=== PATIENT | female | born 1930 | race Caucasian/White ===

== ENCOUNTER 2017-04-10 12:41 | Inpatient (IN) | payer MEDICARE, OTHER ==
[2017-04-10] MEDS ORDERED: Sodium Chloride 0.9% 10 ML Syringe FLUSH PRN (13:15)
[2017-04-10] MEDS ORDERED: Magnesium Hydroxide 400 MG/5 ML Susp 30 ML Cup PO PRN (13:15)
[2017-04-10] MEDS ORDERED: Ondansetron 4 MG/2 ML SDV IV PRN (13:15)
[2017-04-10] MEDS ORDERED: Calcium Carbonate 500 MG Tab.Chew PO PRN (13:23)
[2017-04-10 13:56] LABS: CHLORIDE,CL 107 mEq/L (98-106); SODIUM,NA 144 mEq/L (136-145)
[2017-04-10] MEDS ORDERED: Metoprolol Tartrate 5 MG/5 ML SDV IVPUSH ONE (14:42)
[2017-04-10] MEDS ORDERED: Lactated Ringers 1,000 ML IV ONE (16:00)
[2017-04-10] MEDS ORDERED: Iopamidol 755 Mg/ML 100 ML Bottle IVPUSH ONE (16:06)
--- NOTE | 2017-04-10 17:47 | PCM.SN ---
- Free Text/Narrative Note: Head CT negative per radiologist report. Patient currently in atrial fibrillation. Pulse has improved since IV metoprolol dose. Will start coumadin 10 mg STAT and recheck INR tomorrow. Will bridge with Lovenox 40 mg BID.
[2017-04-10] MEDS ORDERED: Warfarin 5 MG Tab PO ONE (17:48)
[2017-04-10] MEDS: Metoprolol Tartrate 50 MG Tab PO SCH (20:00)
[2017-04-10] MEDS: Enoxaparin 30 MG/0.3 ML Syringe SUBCUT SCH (20:01)
[2017-04-10] MEDS: atorvaSTATin 20 MG Tab PO SCH (20:01)
[2017-04-10] MEDS: amLODIPine 2.5 MG Tab PO SCH (20:06)
[2017-04-11] MEDS: Pantoprazole 40 MG Tab.CR PO SCH (07:20)
[2017-04-11] MEDS: Enoxaparin 30 MG/0.3 ML Syringe SUBCUT SCH ×2 (07:51→20:08)
[2017-04-11] MEDS: amLODIPine 2.5 MG Tab PO SCH ×2 (07:52→20:08)
[2017-04-11] MEDS: Metoprolol Tartrate 50 MG Tab PO SCH ×2 (07:52→20:08)
[2017-04-11] MEDS ORDERED: Magnesium Sulfate/D5W 2 GM in Premix Bag 1 BAG IV ONE (08:23)
[2017-04-11] MEDS ORDERED: Warfarin 5 MG Tab PO ONE (08:41)
--- NOTE | 2017-04-11 10:15 | PN ---
DATE: 04/11/2017 S: This is an elderly female who came, apparently had a stroke down in [place], came in to see me and she was in atrial fibrillation. Telemetry during the night showed rapid ventricular rate with some bradycardia. O: NECK: Supple. CHEST: Clear. CARDIAC: Regular at present. EXTREMITIES: No edema. ASSESSMENT: CEREBROVASCULAR ACCIDENT, ATRIAL FIBRILLATION. PENDING ARE CAT SCANS AND THEN WE WILL START ANTICOAGULATION. LOW ON MAGNESIUM, SO REPLENISH THAT THIS MORNING. NA/OSCAR /[id number]
[2017-04-11] MEDS: atorvaSTATin 20 MG Tab PO SCH (20:08)
[2017-04-12] MEDS: Pantoprazole 40 MG Tab.CR PO SCH (06:54)
[2017-04-12] MEDS: Metoprolol Tartrate 50 MG Tab PO SCH ×2 (07:34→19:48)
[2017-04-12] MEDS: Enoxaparin 30 MG/0.3 ML Syringe SUBCUT SCH ×2 (07:34→19:47)
[2017-04-12] MEDS: amLODIPine 2.5 MG Tab PO SCH ×2 (07:35→19:48)
[2017-04-12] MEDS ORDERED: Sodium Chloride 0.9% 1,000 ML IV SCH (08:45)
--- NOTE | 2017-04-12 09:07 | PCM.PN ---
- General Info Date of Service: 04/12/17 Functional Status: Reports: Pain Controlled, Tolerating Diet, Ambulating, Urinating - Review of Systems General: Reports: No Symptoms HEENT: Reports: No Symptoms Pulmonary: Reports: No Symptoms Cardiovascular: Reports: No Symptoms Gastrointestinal: Reports: No Symptoms Genitourinary: Reports: No Symptoms Musculoskeletal: Reports: No Symptoms Skin: Reports: No Symptoms Neurological: Reports: No Symptoms Psychiatric: Reports: No Symptoms - Patient Data Vitals - Most Recent: Last Vital Signs Temp 98.1 F 04/12/17 07:32 Pulse 64 04/12/17 07:34 Resp 20 04/12/17 07:32 BP 136/57 L 04/12/17 07:35 Pulse Ox 96 04/12/17 07:32 Weight - Most Recent: 144 lb 6.4 oz I&O - Last 24 Hours: Intake & Output 04/11/17 04/12/17 04/12/17 22:59 06:59 14:59 Intake Total 400 Balance 400 Lab Results Last 24 Hours: Laboratory Results - last 24 hr 04/12/17 04/12/17 04/12/17 Range/Units 05:00 07:00 07:00 WBC 3.9 L (5.0-10.0) 10^3/uL RBC 3.14 L (4.00-5.50) 10^6/uL Hgb 10.3 L (12.0-16.0) g/dL Hct 31.1 L (37.0-47.0) % MCV 99.0 H (82.0-94.0) fL MCH 32.8 H (27.0-32.0) pg MCHC 33.1 (33.0-38.0) g/dL RDW Coeff of Wilbert 12.9 (11.0-15.0) % Plt Count 121 L (150-400) 10^3/uL Neut % (Auto) 54.2 (35-85) % Lymph % (Auto) 26.4 (10-55) % [place] % (Auto) 12.9 (0-16) % Eos % (Auto) 5.7 H (0-5) % Baso % (Auto) 0.8 (0-3) % Neut # (Auto) 2.10 (1.80-7.00) 10^3/uL Lymph # (Auto) 1.02 (1.00-4.80) 10^3/uL [place] # (Auto) 0.50 (0.00-0.80) 10^3/uL Eos # (Auto) 0.22 (0.00-0.45) 10^3/uL Baso # (Auto) 0.03 10^3/uL PT 21.9 H (9.7-12.3) SEC INR 1.99 H (0.92-1.18) Sodium 144 (136-145) mEq/L Potassium 3.6 (3.5-5.0) mEq/L Chloride 110 H (98-106) mEq/L Carbon Dioxide 30 (21-32) mmol/L BUN 23 H (7-18) mg/dL Creatinine 1.4 H (0.6-1.0) mg/dL Est Cr Clr Drug Dosing 23.24 mL/min Estimated GFR (MDRD) 36 L (>=60) mL/min Glucose 99 (75-99) mg/dL Calcium 8.6 (8.4-10.1) mg/dL Med Orders - Current: Current Medications Acetaminophen (Tylenol) 650 mg PO Q4H PRN PRN Reason: Pain (Mild 1-3)/fever Amlodipine Besylate (Norvasc) 5 mg PO BID [facility] Last Admin: 04/12/17 07:35 Dose: 5 mg Atorvastatin Calcium (Lipitor) 40 mg PO BEDTIME [facility] Last Admin: 04/11/17 20:08 Dose: 40 mg Calcium Carbonate/Glycine (Tums) 500 mg PO QID PRN PRN Reason: Dyspepsia Enoxaparin Sodium (Lovenox) 30 mg SUBCUT BID [facility] Last Admin: 04/12/17 07:34 Dose: 30 mg Magnesium Hydroxide (Milk Of Magnesia) 30 ml PO Q12H PRN PRN Reason: Constipation Magnesium Oxide (Magnesium Oxide) 250 mg PO BIDM [facility] Last Admin: 04/12/17 07:34 Dose: 250 mg Metoprolol Tartrate (Lopressor) 50 mg PO BID [facility] Last Admin: 04/12/17 07:34 Dose: 50 mg Ondansetron HCl (Zofran) 4 mg IV Q6H PRN PRN Reason: Nausea/Vomiting Pantoprazole Sodium (Protonix) 40 mg PO 0700 [facility] Last Admin: 04/12/17 06:54 Dose: 40 mg Sodium Chloride (Saline Flush) 10 ml FLUSH ASDIRECTED PRN PRN Reason: Keep Vein Open Last Admin: 04/11/17 20:09 Dose: 10 ml Temazepam (Restoril) 15 mg PO BEDTIME PRN PRN Reason: Sleep Warfarin Sodium (Coumadin) 5 mg PO DAILY@1200 [facility] Discontinued Medications Lactated Ringer's (Ringers, Lactated) 1,000 mls @ 100 mls/hr IV ONETIME ONE Stop: 04/11/17 01:59 Last Admin: 04/10/17 16:29 Dose: 100 mls/hr Magnesium Sulfate/Dextrose 2 (gm/ Premix) 200 mls @ 100 mls/hr IV ONETIME ONE Stop: 04/11/17 10:22 Last Admin: 04/11/17 09:14 Dose: 100 mls/hr Sodium Chloride (Normal Saline) 1,000 mls @ 75 mls/hr IV ASDIRECTED [facility] Iopamidol (Isovue-370 (76%)) 100 ml IVPUSH ONETIME ONE Stop: 04/10/17 16:07 Last Admin: 04/10/17 16:20 Dose: 100 ml Metoprolol Tartrate (Lopressor) 2.5 mg IVPUSH ONETIME ONE Stop: 04/10/17 14:43 Last Admin: 04/10/17 15:24 Dose: 2.5 mg Warfarin Sodium (Coumadin) 10 mg PO ONETIME ONE Stop: 04/10/17 17:49 Last Admin: 04/10/17 20:00 Dose: 10 mg Warfarin Sodium (Coumadin) 10 mg PO ONETIME ONE Stop: 04/11/17 08:42 Last Admin: 04/11/17 09:14 Dose: 10 mg - Exam General: Alert, Oriented, Cooperative, No Acute Distress Neck: Supple Lungs: Clear to Auscultation, Normal Respiratory Effort Cardiovascular: Regular Rate, Regular Rhythm, No Murmurs GI/Abdominal Exam: Soft, Non-Tender, No Organomegaly, No Distention, No Abnormal Bruit, No Mass Back Exam: Normal Inspection, Full Range of Motion Extremities: Normal Inspection, Normal Range of Motion, Non-Tender, No Pedal Edema, Normal Capillary Refill Peripheral Pulses: 2+: Radial (L), Radial (R), Posterior Tibial (L), Posterior Tibial (R) Skin: Warm, Dry, Intact Neurological: No New Focal Deficit, Normal Gait, Normal Speech, Strength Equal Bilateral, Sensation Intact, Cranial Nerves Intact Psy/Mental Status: Alert, Normal Affect, Normal Mood - Problem List Review Problem List Initiated/Reviewed/Updated: Yes - My Orders Last 24 Hours: My Active Orders 04/12/17 07:00 MAGNESIUM [CHEM] Stat 04/12/17 12:00 Warfarin [Coumadin] 5 mg PO DAILY@1200 04/13/17 05:00 BMP [BASIC METABOLIC PANEL,BMP] [CHEM] DAILY CBC WITH AUTO DIFF [HEME] DAILY INR,PT,PROTHROMBIN TIME [COAG] DAILY MAGNESIUM [CHEM] Routine 04/14/17 05:00 BMP [BASIC METABOLIC PANEL,BMP] [CHEM] DAILY CBC WITH AUTO DIFF [HEME] DAILY INR,PT,PROTHROMBIN TIME [COAG] DAILY - Plan Plan:: This patient is an 86 year old female that was admitted for a-fib, stroke, generalized weakness. Patient today is alert and oriented. Patient denies any pain, otto, dizziness, n, v, d, f, cp, soa, abd pain, urinary/bowel changes. rash. Will continue to admit until therapeutic INR. Patient is currently NSR rate of 54. Patient plan is to see PCP on Friday. Patient is alert and oriented , no unilateral weaknesses. Stable.
[2017-04-12] MEDS ORDERED: Warfarin 5 MG Tab PO SCH (12:00)
[2017-04-12] MEDS: atorvaSTATin 20 MG Tab PO SCH (19:48)
[2017-04-12] MEDS: Acetaminophen 325 MG Tab PO PRN (19:48)
[2017-04-12] MEDS: Temazepam 15 MG Cap PO PRN (19:48)
[2017-04-13] MEDS: Pantoprazole 40 MG Tab.CR PO SCH (06:28)
[2017-04-13] MEDS: Enoxaparin 30 MG/0.3 ML Syringe SUBCUT SCH (07:38)
[2017-04-13] MEDS: Metoprolol Tartrate 50 MG Tab PO SCH ×2 (07:38→20:10)
[2017-04-13] MEDS: amLODIPine 2.5 MG Tab PO SCH ×2 (07:39→20:15)
[2017-04-13] MEDS ORDERED: Sodium Chloride 0.9% 500 ML IV SCH (11:45)
[2017-04-13] MEDS ORDERED: Warfarin 2.5 MG Tab PO SCH (11:45)
--- NOTE | 2017-04-13 12:34 | PCM.PN ---
- General Info Date of Service: 04/13/17 Functional Status: Reports: Pain Controlled, Tolerating Diet, Ambulating, Urinating - Review of Systems General: Reports: No Symptoms HEENT: Reports: No Symptoms Pulmonary: Reports: No Symptoms Cardiovascular: Reports: No Symptoms Gastrointestinal: Reports: No Symptoms Genitourinary: Reports: No Symptoms Musculoskeletal: Reports: No Symptoms Skin: Reports: No Symptoms Neurological: Reports: No Symptoms Psychiatric: Reports: No Symptoms - Patient Data Vitals - Most Recent: Last Vital Signs Temp 97.2 F 04/13/17 07:36 Pulse 63 04/13/17 07:38 Resp 20 04/13/17 07:36 BP 130/55 L 04/13/17 07:39 Pulse Ox 96 04/13/17 07:36 Weight - Most Recent: 144 lb 6.4 oz I&O - Last 24 Hours: Intake & Output 04/12/17 04/13/17 04/13/17 22:59 06:59 14:59 Intake Total 600 Balance 600 Lab Results Last 24 Hours: Laboratory Results - last 24 hr 04/13/17 04/13/17 04/13/17 Range/Units 07:30 07:30 07:30 WBC 3.5 L (5.0-10.0) 10^3/uL RBC 3.31 L (4.00-5.50) 10^6/uL Hgb 10.7 L (12.0-16.0) g/dL Hct 32.7 L (37.0-47.0) % MCV 98.8 H (82.0-94.0) fL MCH 32.3 H (27.0-32.0) pg MCHC 32.7 L (33.0-38.0) g/dL RDW Coeff of Wilbert 12.9 (11.0-15.0) % Plt Count 119 L (150-400) 10^3/uL Neut % (Auto) 47.7 (35-85) % Lymph % (Auto) 29.7 (10-55) % [place] % (Auto) 14.4 (0-16) % Eos % (Auto) 6.5 H (0-5) % Baso % (Auto) 1.7 (0-3) % Neut # (Auto) 1.69 L (1.80-7.00) 10^3/uL Lymph # (Auto) 1.05 (1.00-4.80) 10^3/uL [place] # (Auto) 0.51 (0.00-0.80) 10^3/uL Eos # (Auto) 0.23 (0.00-0.45) 10^3/uL Baso # (Auto) 0.06 10^3/uL PT 40.1 H (9.7-12.3) SEC INR 3.57 H (0.92-1.18) Sodium 147 H (136-145) mEq/L Potassium 4.2 (3.5-5.0) mEq/L Chloride 111 H (98-106) mEq/L Carbon Dioxide 30 (21-32) mmol/L BUN 21 H (7-18) mg/dL Creatinine 1.5 H (0.6-1.0) mg/dL Est Cr Clr Drug Dosing 21.69 mL/min Estimated GFR (MDRD) 33 L (>=60) mL/min Glucose 102 H (75-99) mg/dL Calcium 8.7 (8.4-10.1) mg/dL Magnesium 1.8 (1.8-2.4) mg/dL Med Orders - Current: Current Medications Acetaminophen (Tylenol) 650 mg PO Q4H PRN PRN Reason: Pain (Mild 1-3)/fever Last Admin: 04/12/17 19:48 Dose: 650 mg Amlodipine Besylate (Norvasc) 5 mg PO BID [facility] Last Admin: 04/13/17 07:39 Dose: 5 mg Atorvastatin Calcium (Lipitor) 40 mg PO BEDTIME [facility] Last Admin: 04/12/17 19:48 Dose: 40 mg Calcium Carbonate/Glycine (Tums) 500 mg PO QID PRN PRN Reason: Dyspepsia Enoxaparin Sodium (Lovenox) 30 mg SUBCUT BID [facility] Last Admin: 04/13/17 07:38 Dose: 30 mg Sodium Chloride (Normal Saline) 500 mls @ 125 mls/hr IV .BOLUS [facility] Last Admin: 04/13/17 12:13 Dose: 125 mls/hr Magnesium Hydroxide (Milk Of Magnesia) 30 ml PO Q12H PRN PRN Reason: Constipation Magnesium Oxide (Magnesium Oxide) 250 mg PO BIDM [facility] Last Admin: 04/13/17 07:38 Dose: 250 mg Metoprolol Tartrate (Lopressor) 50 mg PO BID [facility] Last Admin: 04/13/17 07:38 Dose: 50 mg Ondansetron HCl (Zofran) 4 mg IV Q6H PRN PRN Reason: Nausea/Vomiting Pantoprazole Sodium (Protonix) 40 mg PO 0700 [facility] Last Admin: 04/13/17 06:28 Dose: 40 mg Sodium Chloride (Saline Flush) 10 ml FLUSH ASDIRECTED PRN PRN Reason: Keep Vein Open Last Admin: 04/11/17 20:09 Dose: 10 ml Temazepam (Restoril) 15 mg PO BEDTIME PRN PRN Reason: Sleep Last Admin: 04/12/17 19:48 Dose: 15 mg Warfarin Sodium (Coumadin) 2.5 mg PO ONETIME [facility] Last Admin: 04/13/17 12:11 Dose: 2.5 mg Discontinued Medications Lactated Ringer's (Ringers, Lactated) 1,000 mls @ 100 mls/hr IV ONETIME ONE Stop: 04/11/17 01:59 Last Admin: 04/10/17 16:29 Dose: 100 mls/hr Magnesium Sulfate/Dextrose 2 (gm/ Premix) 200 mls @ 100 mls/hr IV ONETIME ONE Stop: 04/11/17 10:22 Last Admin: 04/11/17 09:14 Dose: 100 mls/hr Sodium Chloride (Normal Saline) 1,000 mls @ 75 mls/hr IV ASDIRECTED [facility] Iopamidol (Isovue-370 (76%)) 100 ml IVPUSH ONETIME ONE Stop: 04/10/17 16:07 Last Admin: 04/10/17 16:20 Dose: 100 ml Metoprolol Tartrate (Lopressor) 2.5 mg IVPUSH ONETIME ONE Stop: 04/10/17 14:43 Last Admin: 04/10/17 15:24 Dose: 2.5 mg Warfarin Sodium (Coumadin) 10 mg PO ONETIME ONE Stop: 04/10/17 17:49 Last Admin: 04/10/17 20:00 Dose: 10 mg Warfarin Sodium (Coumadin) 10 mg PO ONETIME ONE Stop: 04/11/17 08:42 Last Admin: 04/11/17 09:14 Dose: 10 mg Warfarin Sodium (Coumadin) 5 mg PO DAILY@1200 [facility] Last Admin: 04/12/17 11:59 Dose: 5 mg - Exam General: Alert, Oriented, Cooperative, No Acute Distress Neck: Supple, Trachea Midline, No JVD Lungs: Clear to Auscultation, Normal Respiratory Effort Cardiovascular: Regular Rate, Regular Rhythm, No Murmurs GI/Abdominal Exam: Soft, Non-Tender, No Organomegaly, No Distention Back Exam: Normal Inspection, Full Range of Motion Extremities: Normal Inspection, Normal Range of Motion, Non-Tender, No Pedal Edema, Normal Capillary Refill. No: Pedal Edema Peripheral Pulses: 2+: Radial (L), Radial (R), Posterior Tibial (L), Posterior Tibial (R), Dorsalis Pedis (L), Dorsalis Pedis (R) Skin: Warm, Dry, Intact Neurological: No New Focal Deficit, Normal Gait, Normal Speech Psy/Mental Status: Alert, Normal Affect, Normal Mood - Problem List Review Problem List Initiated/Reviewed/Updated: Yes - My Orders Last 24 Hours: My Active Orders 04/13/17 11:45 Sodium Chloride 0.9% [Normal Saline] 500 ml IV .BOLUS Warfarin [Coumadin] 2.5 mg PO ONETIME 04/14/17 05:00 BMP [BASIC METABOLIC PANEL,BMP] [CHEM] DAILY CBC WITH AUTO DIFF [HEME] DAILY INR,PT,PROTHROMBIN TIME [COAG] DAILY - Plan Plan:: 04/12/17 This patient is an 86 year old female that was admitted for a-fib, stroke, generalized weakness. Patient today is alert and oriented. Patient denies any pain, otto, dizziness, n, v, d, f, cp, soa, abd pain, urinary/bowel changes. rash. Will continue to admit until therapeutic INR. Patient is currently NSR rate of 54. Patient plan is to see PCP on Friday. Patient is alert and oriented , no unilateral weaknesses. Stable. 04/13/17 Patient today has no complaints. Patient is alert and oriented. Patient INR yesterday was 1.99, today is 3.57. Today I have held her coumadin 10mg and will give her 2.5mg coumadin today. Will recheck this tomorrow and allow PCP to see her to make further coumadin dosing determination. Her CR yesterday was 1.4, today 1.5. Her BUN 23 yesterday, today is 21. I have given her a 500ml NS. Patient reports that she drinks a lot of coffee and not much water. Patient denies any complaints. She denies otto, dizziness, n, v, d, f, cp, soa, abd pain, urinary/bowel changes. She is able to ambulate without difficulty. She is eating lunch now. Stable.
[2017-04-13] MEDS: Acetaminophen 325 MG Tab PO PRN (20:10)
[2017-04-13] MEDS: Temazepam 15 MG Cap PO PRN (20:12)
[2017-04-13] MEDS: atorvaSTATin 20 MG Tab PO SCH (20:12)
[2017-04-14] MEDS: Pantoprazole 40 MG Tab.CR PO SCH (06:53)
[2017-04-14] MEDS: Metoprolol Tartrate 50 MG Tab PO SCH ×2 (08:04→19:51)
[2017-04-14] MEDS: amLODIPine 2.5 MG Tab PO SCH ×2 (08:04→19:51)
--- NOTE | 2017-04-14 08:46 | PN ---
DATE: 04/14/2017 S: Marika Baires came in with CVA secondary to atrial fibrillation. CTA of chest and head looked okay. CT scan had looked pretty good. Echo pending. O: On examination, NECK: Supple. CHEST: Clear. CARDIAC: Regular. ASSESSMENT: ATRIAL FIBRILLATION AND CEREBROVASCULAR ACCIDENT. P: Continue anticoagulation. shelter placement. We will do an anemia workup on her. NA/OSCAR /[id number]
[2017-04-14] MEDS: Acetaminophen 325 MG Tab PO PRN (19:51)
[2017-04-14] MEDS: atorvaSTATin 20 MG Tab PO SCH (19:51)
[2017-04-14] MEDS: Temazepam 15 MG Cap PO PRN (19:52)
[2017-04-15] MEDS: Pantoprazole 40 MG Tab.CR PO SCH (07:00)
[2017-04-15] MEDS: amLODIPine 2.5 MG Tab PO SCH ×2 (08:00→20:08)
[2017-04-15] MEDS: Metoprolol Tartrate 50 MG Tab PO SCH ×2 (15:06→20:11)
[2017-04-15] MEDS: atorvaSTATin 20 MG Tab PO SCH (20:08)
[2017-04-15] MEDS: Temazepam 15 MG Cap PO PRN (21:34)
[2017-04-16] MEDS: Pantoprazole 40 MG Tab.CR PO SCH (06:42)
[2017-04-16] MEDS: Metoprolol Tartrate 50 MG Tab PO SCH ×2 (07:59→20:19)
[2017-04-16] MEDS: amLODIPine 2.5 MG Tab PO SCH ×2 (08:00→20:19)
--- NOTE | 2017-04-16 08:20 | PN ---
DATE: 04/15/2017 S: Marika Baires is in with atrial fibrillation, CVA, really good today, says she feels better. Still walking with PT. O: NECK: Supple. CHEST: Clear. CARDIAC: Regular. No edema. 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 P: Continue physical therapy and then disposition question. NA/OSCAR /[id number]
[2017-04-16] MEDS ORDERED: Warfarin 2 MG Tab PO ONE (08:43)
--- NOTE | 2017-04-16 11:59 | PN ---
DATE: 04/16/2017 S: Marika Baires is in CVA, atrial fibrillation. O: NECK: Supple. CHEST: Clear. CARDIAC: Sounds are good. ASSESSMENT: ATRIAL FIBRILLATION WITH PROBABLE THROMBOEMBOLIC PHENOMENON FOR CEREBROVASCULAR DISEASES. P: Continue anticoagulation and find out what we are going to do with her. NA/OSCAR /[id number]
[2017-04-16] MEDS: atorvaSTATin 20 MG Tab PO SCH (20:19)
[2017-04-16] MEDS: Temazepam 15 MG Cap PO PRN (22:27)
[2017-04-17] MEDS: Pantoprazole 40 MG Tab.CR PO SCH (06:56)
[2017-04-17] MEDS: Metoprolol Tartrate 50 MG Tab PO SCH (07:57)
[2017-04-17] MEDS: amLODIPine 2.5 MG Tab PO SCH (07:57)
--- NOTE | 2017-04-17 08:04 | DISCH ---
HOSPITAL COURSE: Marika Baires came in with a history of CVA with atrial fibrillation. She was admitted to the hospital and started on anticoagulation and responded nicely. At the time of discharge, she had converted. She had no further deficit from the CVA. I did do a CTA of her head and neck, which looked good. CAT scan of the head showed minimal residual from the stroke. Echocardiogram showed no significant problems. Lab here in the hospital; hemoglobin was down a little bit from 10.3, but it went back to 11. INR became elevated, we held, and at the time of discharge, it was adequate. Panel 8 looks good other than the creatinine mildly elevated, which is fci. Urinalysis looks good. DISPOSITION: The patient now discharged home, be admitted to basic care at [facility] next Friday. I will see her back in the clinic next for an INR. DISCHARGE MEDICATIONS: Include home meds plus Coumadin 2 mg daily. DISCHARGE DIAGNOSIS: 1. ATRIAL FIBRILLATION. 2. CEREBROVASCULAR ACCIDENT. 3. HYPERTENSION. 4. HYPERLIPIDEMIA. NA/OSCAR /[id number]
== END 2017-04-17 14:15 | disposition home or self-care (01) | DRG 308 ==
LOC: CC.MS 12:59
PROVIDERS: ADMIT General Practice; ATTEND General Practice
DX: I48.0 Paroxysmal atrial fibrillation (principal); I63.8 Other cerebral infarction; Z79.01 Long term (current) use of anticoagulants; R53.1 Weakness; E83.42 Hypomagnesemia; I10 Essential (primary) hypertension; E78.5 Hyperlipidemia, unspecified; R42 Dizziness and giddiness; Z79.899 Other long term (current) drug therapy
CPT/HCPCS: 36415; 70450; 70496; 70498; 71020; 80048; 80053; 81001; 82270; 82607; 82728; 82746; 83540; 83550; 83735; 84443; 85025; 85379; 85610; 85651; 86140; 93005; 93306; 97110-GP; 97161-GP; A9270-GY; J1650; J3475; J3490; J7040; J7050; J7120; Q9967

== ENCOUNTER 2018-04-06 21:35 | Emergency (ER) | payer MEDICARE, MEDICAID ==
[2018-04-06] MEDS ORDERED: Ondansetron 4 MG Tab.DIS PO ONE (21:43)
--- NOTE | 2018-04-06 22:07 | EDM.PDOC ---
ED HPI GENERAL MEDICAL PROBLEM - General Chief Complaint: Gastrointestinal Problem Stated Complaint: n/v/d Time Seen by Provider: 04/06/18 22:00 Source of Information: Reports: Patient, Fdc Records History Limitations: Reports: No Limitations - History of Present Illness INITIAL COMMENTS - FREE TEXT/NARRATIVE: at 0200 she started with vomiting and diarrhea and has had it on and off since. Last time that she vomited or diarrhea was about supper time. She did keep her evening meds down. She denies having any fever throughout the day. Does have some stomach cramping but less than previously. She does reside in basic care at [facility]. 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: Other (see below) (pepto and immodium) - Related Data Allergies Allergy/AdvReac Type Severity Reaction Status Date / Time No Known Allergies Allergy Verified 04/06/18 21:41 Home Meds: Home Meds Metoprolol Tartrate [Lopressor] 50 mg PO BID 04/10/17 [History] Pantoprazole Sodium 40 mg PO QAM 04/10/17 [History] amLODIPine [Norvasc] 2.5 mg PO BID 04/10/17 [History] atorvaSTATin [Lipitor] 40 mg PO BEDTIME 04/10/17 [History] Magnesium Oxide 250 mg PO BIDM #30 tablet 04/17/17 [Rx] Acetaminophen 650 mg PO Q4H 04/06/18 [History] Loratadine 10 mg PO DAILY PRN 04/06/18 [History] Triamterene/Hydrochlorothiazid [Dyazide 37.5-25] 1 cap PO DAILY 04/06/18 [ History] Warfarin [Coumadin] 2.5 mg PO DAILY 04/06/18 [History] Past Medical History Cardiovascular History: Reports: Afib, High Cholesterol Genitourinary History: Reports: Urinary Incontinence [employer] History: Reports: Neurological History: Reports: CVA Other Neuro History: 02/2017 Hematologic History: Reports: B12 Deficiency - Past Surgical History GI Surgical History: Reports: Appendectomy, Cholecystectomy Female Surgical History: Reports: Hysterectomy Social & Family History - Family History Family Medical History: Noncontributory - Caffeine Use Caffeine Use: Reports: None Caffeine Use Comment: Decaf coffee - Living Situation & Occupation Living situation: Reports: Extended Care Facility Occupation: Retired ED ROS GENERAL - Review of Systems Review Of Systems: See Below Constitutional: Reports: Weakness, Decreased Appetite. Denies: Fever, Chills HEENT: Reports: No Symptoms Respiratory: Reports: No Symptoms Cardiovascular: Reports: No Symptoms GI/Abdominal: Reports: Diarrhea, Vomiting. Denies: Black Stool, Bloody Stool : Denies: Dysuria, Frequency Skin: Denies: Rash Neurological: Reports: Dizziness (did have earlier but denies any currently.) ED EXAM, GI/ABD - Physical Exam Exam: See Below Exam Limited By: No Limitations General Appearance: Alert, WD/WN, No Apparent Distress Ears: Normal Canal, Normal TMs Nose: Normal Inspection, Normal Mucosa Throat/Mouth: Normal Inspection, Normal Oropharynx, Normal Voice, No Airway Compromise Head: Atraumatic, Normocephalic Neck: Normal Inspection, Supple, Non-Tender, Full Range of Motion Respiratory/Chest: No Respiratory Distress, Lungs Clear, Normal Breath Sounds Cardiovascular: Tachycardia, Irregularly Irregular GI/Abdominal Exam: Normal Bowel Sounds, Soft, Non-Tender, No Distention, No Mass. No: Guarding, Rigid, Rebound Back Exam: Normal Inspection Extremities: No Pedal Edema, Normal Capillary Refill Neurological: Alert, Oriented, Normal Cognition Skin Exam: Warm, Dry, Intact Course - Vital Signs Last Recorded V/S: Last Vital Signs Temp 99.7 F 04/06/18 21:49 Pulse 126 H 04/06/18 22:23 Resp 18 04/06/18 21:49 BP 108/67 04/06/18 21:49 Pulse Ox 99 04/06/18 21:49 - Orders/Labs/Meds Labs: Laboratory Tests 04/06/18 04/06/18 04/06/18 Range/Units 21:50 21:50 21:50 WBC 4.8 L (5.0-10.0) 10^3/uL RBC 3.99 L (4.00-5.50) 10^6/uL Hgb 12.0 (12.0-16.0) g/dL Hct 37.1 (37.0-47.0) % MCV 93.0 (82.0-94.0) fL MCH 30.1 (27.0-32.0) pg MCHC 32.3 L (33.0-38.0) g/dL RDW Coeff of Wilbert 13.1 (11.0-15.0) % Plt Count 127 L (150-400) 10^3/uL Neut % (Auto) 88.5 H (35-85) % Lymph % (Auto) 4.2 L (10-55) % [place] % (Auto) 7.1 (0-16) % Eos % (Auto) 0 (0-5) % Baso % (Auto) 0.2 (0-3) % Neut # (Auto) 4.24 (1.80-7.00) 10^3/uL Lymph # (Auto) 0.20 L (1.00-4.80) 10^3/uL [place] # (Auto) 0.34 (0.00-0.80) 10^3/uL Eos # (Auto) 0.00 (0.00-0.45) 10^3/uL Baso # (Auto) 0.01 10^3/uL PT 24.5 H (9.7-12.3) SEC INR 2.52 H (0.92-1.18) Sodium 143 (136-145) mEq/L Potassium 3.2 L (3.5-5.0) mEq/L Chloride 104 (98-106) mEq/L Carbon Dioxide 27 (21-32) mmol/L BUN 31 H (7-18) mg/dL Creatinine 1.7 H (0.6-1.0) mg/dL Est Cr Clr Drug Dosing TNP Estimated GFR (MDRD) 28 L (>=60) mL/min Glucose 128 H D (75-99) mg/dL Calcium 8.5 (8.4-10.1) mg/dL Total Bilirubin 1.3 H (0.0-1.0) mg/dL AST 26 (15-37) U/L ALT 29 (12-78) U/L Alkaline Phosphatase 33 L (46-116) U/L C-Reactive Protein 3.6 H (0.2-0.8) mg/dL Total Protein 6.8 (6.4-8.2) g/dL Albumin 3.4 (3.4-5.0) g/dL Urine Color (YELLOW) Urine Appearance (CLEAR) Urine pH (4.5-8.0) Ur Specific [place] (1.003-1.020) Urine Protein (NEGATIVE) mg/dL Urine Glucose (UA) (NEGATIVE) mg/dL Urine Ketones (NEGATIVE) mg/dL Urine Occult Blood (NEGATIVE) Urine Nitrite (NEGATIVE) Urine Bilirubin (NEGATIVE) Urine Urobilinogen (0.2-1.0) EU/dL Ur Leukocyte Esterase (NEGATIVE) Urine RBC (0-5) /HPF Urine WBC (0-5) /HPF Ur Epithelial Cells (NOT SEEN) /HPF Urine Mucus (NOT SEEN) /HPF 04/06/18 Range/Units 22:15 WBC (5.0-10.0) 10^3/uL RBC (4.00-5.50) 10^6/uL Hgb (12.0-16.0) g/dL Hct (37.0-47.0) % MCV (82.0-94.0) fL MCH (27.0-32.0) pg MCHC (33.0-38.0) g/dL RDW Coeff of Wilbert (11.0-15.0) % Plt Count (150-400) 10^3/uL Neut % (Auto) (35-85) % Lymph % (Auto) (10-55) % [place] % (Auto) (0-16) % Eos % (Auto) (0-5) % Baso % (Auto) (0-3) % Neut # (Auto) (1.80-7.00) 10^3/uL Lymph # (Auto) (1.00-4.80) 10^3/uL [place] # (Auto) (0.00-0.80) 10^3/uL Eos # (Auto) (0.00-0.45) 10^3/uL Baso # (Auto) 10^3/uL PT (9.7-12.3) SEC INR (0.92-1.18) Sodium (136-145) mEq/L Potassium (3.5-5.0) mEq/L Chloride (98-106) mEq/L Carbon Dioxide (21-32) mmol/L BUN (7-18) mg/dL Creatinine (0.6-1.0) mg/dL Est Cr Clr Drug Dosing Estimated GFR (MDRD) (>=60) mL/min Glucose (75-99) mg/dL Calcium (8.4-10.1) mg/dL Total Bilirubin (0.0-1.0) mg/dL AST (15-37) U/L ALT (12-78) U/L Alkaline Phosphatase (46-116) U/L C-Reactive Protein (0.2-0.8) mg/dL Total Protein (6.4-8.2) g/dL Albumin (3.4-5.0) g/dL Urine Color Yellow (YELLOW) Urine Appearance Clear (CLEAR) Urine pH 6.5 (4.5-8.0) Ur Specific [place] 1.020 (1.003-1.020) Urine Protein 30 H (NEGATIVE) mg/dL Urine Glucose (UA) Negative (NEGATIVE) mg/dL Urine Ketones Trace H (NEGATIVE) mg/dL Urine Occult Blood Moderate H (NEGATIVE) Urine Nitrite Negative (NEGATIVE) Urine Bilirubin Negative (NEGATIVE) Urine Urobilinogen 0.2 (0.2-1.0) EU/dL Ur Leukocyte Esterase Negative (NEGATIVE) Urine RBC 10-20 H (0-5) /HPF Urine WBC 0-5 (0-5) /HPF Ur Epithelial Cells Few H (NOT SEEN) /HPF Urine Mucus Few H (NOT SEEN) /HPF Meds: Medications Discontinued Medications Generic Name Dose Route Start Last Admin Trade Name Freq PRN Reason Stop Dose Admin Ondansetron HCl 4 mg 04/06/18 21:43 04/06/18 21:51 Zofran Odt PO 04/06/18 21:44 4 mg ONETIME ONE Administration Departure - Departure Time of Disposition: 22:33 Disposition: [facility] Condition: Good Clinical Impression: Gastroenteritis - Discharge Information *PRESCRIPTION DRUG MONITORING PROGRAM REVIEWED*: Not Applicable *COPY OF PRESCRIPTION DRUG MONITORING REPORT IN PATIENT [place]: Not Applicable Instructions: Viral Gastroenteritis, Adult Forms: ED Department Discharge Additional Instructions: sips of fluid as tolerated Zofran ODT 4 mg as tolerated for the nausea. Avoid milk and milk products until 24 hours after diarrhea done Restart solid foods as tolerated. Recheck if not improving. - Problem List & Annotations (1) Gastroenteritis SNOMED Code(s): 62396690 Code(s): K52.9 - NONINFECTIVE GASTROENTERITIS AND COLITIS, UNSPECIFIED Status: Acute Priority: High Current Visit: Yes (2) A-fib SNOMED Code(s): 58621070 Code(s): I48.91 - UNSPECIFIED ATRIAL FIBRILLATION Status: Chronic Priority: Low Current Visit: No Qualifiers: Atrial fibrillation type: chronic Qualified Code(s): I48.2 - Chronic atrial fibrillation - Problem List Review Problem List Initiated/Reviewed/Updated: Yes
[2018-04-06 22:09] LABS: CHLORIDE,CL 104 mEq/L (98-106); SODIUM,NA 143 mEq/L (136-145)
== END 2018-04-06 22:45 ==
LOC: CC.ED 21:35
DX: K52.9 Noninfective gastroenteritis and colitis, unspecified (principal); I48.2 Chronic atrial fibrillation; E78.00 Pure hypercholesterolemia, unspecified; Z79.899 Other long term (current) drug therapy; Z79.01 Long term (current) use of anticoagulants
CPT/HCPCS: 36415; 80053; 81001; 85025; 85610; 86140; 99283; A9270

== ENCOUNTER 2019-09-27 11:22 | Inpatient (IN) | payer MEDICARE, MEDICAID ==
[2019-09-27] MEDS ORDERED: Acetaminophen 325 MG Tab PO PRN (11:57)
[2019-09-27] MEDS ORDERED: Sodium Chloride 0.9% 10 ML Syringe FLUSH PRN (11:57)
[2019-09-27] MEDS ORDERED: fentaNYL 100 MCG/2 ML SDV IVPUSH PRN (11:57)
[2019-09-27] MEDS ORDERED: Piperacillin/Tazobactam 3.375 GM in Sodium Chloride 0.9% 50 ML IV SCH (12:00)
[2019-09-27] MEDS ORDERED: Loratadine 10 MG Tab PO PRN (13:26)
[2019-09-27] MEDS: Acetaminophen 325 MG Tab PO SCH ×4 (14:37→23:41)
[2019-09-27] MEDS ORDERED: Piperacillin/Tazobactam 2.25 GM in Sodium Chloride 0.9% 50 ML IV SCH ×2 (15:00→18:00)
[2019-09-27] MEDS ORDERED: Sodium Chloride 0.9% 250 ML IV SCH (15:30)
[2019-09-27] MEDS: Sodium Chloride 0.9% 1,000 ML IV SCH (17:26)
[2019-09-27] MEDS: amLODIPine 2.5 MG Tab PO SCH (19:35)
[2019-09-27] MEDS: Metoprolol Tartrate 50 MG Tab PO SCH (19:36)
[2019-09-27] MEDS ORDERED: atorvaSTATin 20 MG Tab PO SCH (20:00)
[2019-09-27] MEDS: Piperacillin/Tazobactam 2.25 GM in Sodium Chloride 0.9% 50 ML IV SCH (23:31)
[2019-09-28] MEDS: Sodium Chloride 0.9% 1,000 ML IV SCH (02:31)
[2019-09-28] MEDS: Acetaminophen 325 MG Tab PO SCH ×3 (04:26→11:03)
[2019-09-28] MEDS ORDERED: Pantoprazole 40 MG Tab.CR PO SCH (07:00)
[2019-09-28] MEDS: Piperacillin/Tazobactam 2.25 GM in Sodium Chloride 0.9% 50 ML IV SCH (07:26)
[2019-09-28] MEDS: Metoprolol Tartrate 50 MG Tab PO SCH (07:53)
[2019-09-28] MEDS: amLODIPine 2.5 MG Tab PO SCH (07:53)
[2019-09-28] MEDS ORDERED: Folic Acid 1 MG Tab PO SCH (08:00)
[2019-09-28] MEDS ORDERED: Cyanocobalamin (Vitamin B12) 1,000 MCG Tab PO SCH (08:00)
[2019-09-28] MEDS ORDERED: Hydrochlorothiazide/Triamterene 25-37.5 MG Cap PO SCH (08:00)
[2019-09-28] MEDS ORDERED: NS + KCl 20mEq/L 1,000 ML IV SCH (09:45)
--- NOTE | 2019-09-28 13:19 | PN ---
DATE: 09/28/2019 S: Mrs. Baires was admitted by Vandana for pelvic cellulitis. It sounds like she has in the recent week had a boil somewhere in the groin or perineal area that was popped. She suddenly started developing increased pain and redness throughout the perineum and into the mons pubis area and she presented yesterday with worsening pain. She has a white count of over 20,000 and a CRP of almost 40. She was hypokalemic on admit, and her creatinine was 2.2. She did have a supratherapeutic INR as well. She has not spiked any significant temps, but she did increase her atrial fibrillation rate, she has been running in the 130s. Her blood pressures are fine. She is saturating well. Her lactic acid done this morning was 1.1. O: On physical exam, the patient is pleasant and cooperative. She does not appear in distress unless you examine in her perineal area. She has redness extending all the way from the perineum up into the mons labia and mons pubis bilaterally. She has a thick indurated and red cellulitis. I do not see any obvious boil or masses. ASSESSMENT: 1. PELVIC CELLULITIS. 2. SUPRATHERAPEUTIC INR. 3. HYPOKALEMIA. 4. CHRONIC RENAL INSUFFICIENCY. P: We will add potassium chloride to her bag and correct her potassium. Her magnesium level was normal. INR is 9.42 and we will discontinue to hold her Coumadin. She does not show any signs of active bleeding. Continue to follow her labs closely. Blood pressures are fine, and she remains on IV fluids, little concerned about her tachycardia from her atrial fibrillation. We will continue to monitor that this morning and we may need to give her a low-dose diltiazem. I am going to try to get a hold of Radiology and see if we can get a pelvic CT. If this would show an abscess here, she would need surgical consultation. VANDANA/OSCAR /[id number]
--- NOTE | 2019-09-28 13:35 | DISCH ---
ADMISSION DIAGNOSES: 1. Cellulitis. 2. Chronic atrial fibrillation. 3. Supratherapeutic INR. DISCHARGE DIAGNOSIS: 1. CARO GANGRENE. 2. ATRIAL FIBRILLATION. 3. HYPERTENSION. 4. HYPERLIPIDEMIA. HISTORY: The patient is an 89-year-old female who resides at an assisted living facility attached to [facility] in [place], [place]. Within the last week, she apparently had a boil or a cyst-like spot in her left groin, which was expressed without any trouble. Over the next 5 to 6 days, she started having increased redness in the groin and up into the labial area and now up into the suprapubic region. She was evaluated by Gemma Reed on the date of admit, felt to have cellulitis since with an elevated white count and CRP of 37. She was admitted for IV antibiotics. At that time, her lactic acid level was normal. She was hypokalemic at 3.3 and had an INR over 10. She was given vitamin K, started on vancomycin and Zosyn. HOSPITAL COURSE: The patient clinically has done fine other than pain during her stay. She has not been hypotensive. She is little tachycardic with her AFib running in the low teens. She does have potassium replaced into her IV. When I evaluated her, she had marked induration and discomfort all the way through the mons pubis down into both labia and into the perineal area which was concerning for possible abscess or Caro gangrene. I did talk to Radiology about a CT scan without contrast to see if we could see evidence of this. This was accomplished and they feel that this is the case. I was able to talk to Dr. Doyle on-call hospitalist at [facility], who agrees to accept the patient on transfer for ongoing IV antibiotic care and potential surgical intervention. Due to her elevated INR, we will give her another 5 of vitamin K prior to her leaving. Because she is going [facility], her IV potassium will be discontinued and she will be just kept on normal saline. She will go ground to direct admit at [facility] in [place]. COMPLICATIONS: During her stay were none. CONSULTATIONS: None. PROCEDURES: CT pelvis without contrast. DISPOSITION: [facility] ground transfer to [facility], direct admit, Dr. Doyle. VANDANA/OSCAR /[id number]
[2019-09-29] MEDS ORDERED: amLODIPine 2.5 MG Tab PO SCH (08:00)
== END 2019-09-28 12:54 | DRG 603 ==
LOC: UNDOADMIN 11:50 → CC.MS 11:50
PROVIDERS: ADMIT Physician Assistant Medical; ATTEND Family Medicine
DX: L03.314 Cellulitis of groin (principal); I48.20 Chronic atrial fibrillation, unspecified; N76.89 Other specified inflammation of vagina and vulva; R79.1 Abnormal coagulation profile; I10 Essential (primary) hypertension; E78.5 Hyperlipidemia, unspecified; E87.6 Hypokalemia; Z79.01 Long term (current) use of anticoagulants; Z79.899 Other long term (current) drug therapy
CPT/HCPCS: 36415; 74176; 80048; 83605; 83735; 85025; 85610; 86140; 93005; A9270-GY; J2543; J3370; J3430; J3480; J7030; J7050